=== PATIENT | female | born 1995 | race Hispanic/Latino ===

== ENCOUNTER 2022-05-18 12:24 | Inpatient (IN) | payer BC ==
[~2022-05-18] VITALS: Ht 175.3 cm; Wt 174.2 kg
[2022-05-18 14:25] LABS: BASOPHILS % (AUTO) 0.2 % (0.0-5.0); EOSINOPHILS % (AUTO) 0.1 % (0.0-8.0); HEMATOCRIT 44.3 % (36-48); LYMPHOCYTES % (AUTO) 8.3 % (21.0-51.0); MEAN CORPUSCULAR HEMOGLOBIN 28.5 pg (27.0-33.0); MEAN CORPUSCULAR VOLUME 86.5 fL (79-99); NEUTROPHILS % (AUTO) 89.6 % (40.0-77.0); PLATELET COUNT (AUTO) 318 K/uL (130-400); RED BLOOD CELL COUNT(AUTO) 5.12 MIL/uL (4.00-5.50); RED CELL DISTRIBUTION WIDTH 14.4 % (11.0-15.5); WHITE BLOOD COUNT (AUTO) 11.5 K/uL (4.8-10.8)
[2022-05-18 14:55] LABS: HEMOGLOBIN A1C 5.8 % (4.0-6.0)
[2022-05-18 15:04] LABS: ALBUMIN 3.5 g/dL (3.5-5.0); CREATININE 1.2 mg/dL (0.5-1.5); POTASSIUM 4.1 mmol/L (3.5-5.1); THYROID STIMULATING HORMONE 1.79 uIU/mL (0.36-3.74); TOTAL PROTEIN, SERUM 7.8 g/dL (6.0-8.3)
[2022-05-18] MEDS: SOLU-MEDROL 40MG VIAL IVP SCH ×2 (15:20→22:55)
[2022-05-18 16:00] VITALS: BP 127/75
[2022-05-18 17:49] LABS: APPEARANCE,URINE CLEAR (CLEAR); BILIRUBIN,URINE NEGATIVE (NEGATIVE); COLOR,URINE LIGHT-YELLOW (YELLOW); GLUCOSE, URINE (UA) NEGATIVE (NEGATIVE); KETONES,URINE 5 mg/dL (NEGATIVE); LEUKOCYTE ESTERASE ,URINE NEGATIVE Leu/uL (NEGATIVE); NITRATE,URINE NEGATIVE (NEGATIVE); OCCULT BLOOD,URINE NEGATIVE (NEGATIVE); PH,URINE 5.5 (5.0-8.0); PROTEIN,URINE NEGATIVE (NEGATIVE); UROBILINOGEN,URINE 0.2 mg/dL (0.2-1.0)
[2022-05-18 17:52] LABS: BACTERIA,URINE RARE /HPF (None Seen); MUCUS,URINE RARE LPF (None Seen); SQUAMOUS EPITHELIAL CELL,UR FEW /HPF (0-2); YEAST,URINE BUDDING RARE /HPF (None Seen)
[2022-05-18] MEDS ORDERED: ACETAMINOPHEN 325 MG TAB ONE (18:16)
[2022-05-18] MEDS ORDERED: ACETAMINOPHEN 325 MG TAB PO PRN (18:30)
[2022-05-18 20:00] VITALS: BP 111/62
[2022-05-18] MEDS: FAMOTIDINE 20MG TAB PO SCH (20:12)
[2022-05-18] MEDS ORDERED: LISI10TA24 PO (20:19)
[2022-05-18] MEDS ORDERED: SPIR25TA6 PO (20:19)
[2022-05-18] MEDS ORDERED: SERT-438 PO (20:19)
[2022-05-18] MEDS ORDERED: OZEMPIC SQ (20:19)
[2022-05-18] MEDS ORDERED: MONTELUKAST SODIUM 10 MG TAB PO SCH (21:00)
[2022-05-18] MEDS: IPRATROPIUM/ALBUTEROL SULFATE 3 ML SOLUTION IH PRN (22:44)
[2022-05-18 23:40] VITALS: BP 117/71
[2022-05-19] MEDS: IPRATROPIUM/ALBUTEROL SULFATE 3 ML SOLUTION IH PRN ×3 (01:23→11:33)
[2022-05-19 03:54] VITALS: BP 132/83
[2022-05-19 05:05] LABS: BASOPHILS % (AUTO) 0.1 % (0.0-5.0); EOSINOPHILS % (AUTO) 0.2 % (0.0-8.0); HEMATOCRIT 43.5 % (36-48); LYMPHOCYTES % (AUTO) 7.3 % (21.0-51.0); MEAN CORPUSCULAR HEMOGLOBIN 28.5 pg (27.0-33.0); MEAN CORPUSCULAR HGB CONC 32.9 g/dL (32.0-36.0); MEAN CORPUSCULAR VOLUME 86.7 fL (79-99); MONOCYTES % (AUTO) 5.2 % (3.0-13.0); NEUTROPHILS % (AUTO) 86.4 % (40.0-77.0); PLATELET COUNT (AUTO) 350 K/uL (130-400); RED BLOOD CELL COUNT(AUTO) 5.02 MIL/uL (4.00-5.50); RED CELL DISTRIBUTION WIDTH 14.6 % (11.0-15.5); WHITE BLOOD COUNT (AUTO) 18.6 K/uL (4.8-10.8)
[2022-05-19 05:20] LABS: ALBUMIN 3.5 g/dL (3.5-5.0); POTASSIUM 4.3 mmol/L (3.5-5.1); TOTAL PROTEIN, SERUM 7.9 g/dL (6.0-8.3)
[2022-05-19] MEDS: SOLU-MEDROL 40MG VIAL IVP SCH ×2 (06:26→15:12)
[2022-05-19 07:35] VITALS: BP 110/58
[2022-05-19] MEDS ORDERED: LORATADINE 10 MG TABLET PO SCH (09:00)
[2022-05-19] MEDS ORDERED: ENOXAPARIN SODIUM 40 MG/0.4 ML SYRINGE SQ SCH (09:00)
[2022-05-19] MEDS: FAMOTIDINE 20MG TAB PO SCH (09:42)
[2022-05-19 11:35] VITALS: BP 117/78
[2022-05-19] MEDS ORDERED: FLUT1DIS3 IH (13:51)
[2022-05-19] MEDS ORDERED: MONT-46 PO (13:51)
[2022-05-19] MEDS ORDERED: LORA10TA7 PO (13:51)
[2022-05-19] MEDS ORDERED: PRED20TA3 PO (13:51)
[2022-05-19 15:35] VITALS: BP 109/60
== END 2022-05-19 17:53 | disposition home or self-care (01) | DRG 189 ==
LOC: 3DH 12:35 → EDBD 12:35
PROVIDERS: ADMIT Hospitalist; ATTEND Hospitalist
DX: J96.00 Acute respiratory failure, unspecified whether with hypoxia or hypercapnia (principal); J45.902 Unspecified asthma with status asthmaticus; Z68.43 Body mass index [BMI] 50.0-59.9, adult; E03.9 Hypothyroidism, unspecified; I10 Essential (primary) hypertension; E28.2 Polycystic ovarian syndrome; E66.01 Morbid (severe) obesity due to excess calories; Z82.49 Family history of ischemic heart disease and other diseases of the circulatory system; Z83.3 Family history of diabetes mellitus; Z87.891 Personal history of nicotine dependence
CPT/HCPCS: 36415; 71045; 80053; 80061; 81001; 83036; 83735; 84439; 84443; 84481; 85025; 94640; 94664; G0378; J1650; J2920